=== PATIENT | female | born 1985 | race American Indian/Alaskan Native ===

== ENCOUNTER 2016-11-27 15:43 | Inpatient (IN) | payer MEDICAID ==
[2016-11-27] MEDS ORDERED: LACTATED RINGERS 1,000 ML ONE (15:52)
--- NOTE | 2016-11-27 16:30 | Anesthesia Consultation ---
Anesthesia Consult and Med Hx Date of service: 11/27/16 - Airway Anesthetic Teeth Evaluation: Poor (multiple careos teeth upper front) ROM Head & Neck: Adequate Mental/Hyoid Distance: Adequate Mallampati Class: Class III Intubation Access Assessment: Possibly Difficult - Pre-Operative Health Status ASA Pre-Surgery Classification: ASA3 - Cardiovascular System Hx Hypertension: Yes (PIH) - Other Systems Hx Obesity: Yes (super obesity BMI 77.7)
[2016-11-27] MEDS ORDERED: ZOFRAN IV PRN ×2 (16:32→18:22)
[2016-11-27] MEDS ORDERED: DILAUDID IV PRN (16:32)
[2016-11-27] MEDS ORDERED: NUBAIN IV PRN (16:32)
[2016-11-27] MEDS ORDERED: TORADOL IV PRN (16:32)
[2016-11-27] MEDS ORDERED: NARCAN 0.4 MG/1 ML IV PRN ×3 (16:32→20:38)
--- NOTE | 2016-11-27 16:32 | Anesthesia Day of Surgery ---
Anesthesia Day of Surgery - Day of Surgery Patient Examined: Yes Patient H&P Reviewed: Yes Patient is NPO: Yes
[2016-11-27] MEDS ORDERED: REGLAN IV ONE (16:35)
[2016-11-27] MEDS ORDERED: BICITRA PO ONE (16:35)
[2016-11-27] MEDS ORDERED: PEPCID IV ONE (16:35)
[2016-11-27] MEDS ORDERED: LACTATED RINGERS 1,000 ML IV SCH (17:00)
[2016-11-27] MEDS ORDERED: PITOCin/NS 20 UNIT/1000ML DRIP 20 UNITS/1,000 ML BAG IV SCH (17:00)
[2016-11-27] MEDS ORDERED: SODIUM CHLORIDE FLUSH SYRINGE 10 ML IV NR ×3 (17:00→21:00)
[2016-11-27] MEDS ORDERED: ANCEF/STERILE WATER 2 GM/20 ML 2 GM/20 ML SYRINGE IV NR (17:00)
[2016-11-27 17:09] LABS: Basophils % (Auto) 1.8 % (0.0-1.8); Eosinophils % (Auto) 0.8 % (0.0-4.3); Hematocrit 41.6 % (30.3-42.9); Hemoglobin 13.7 gm/dl (10.1-14.3); Mean Corpuscular HGB Conc 33 % (30-34); Mean Corpuscular Hemoglobin 29 pg (28-32); Mean Corpuscular Volume 90 fl (79-97); Platelet Count 231 K/mm3 (140-440); Red Blood Count 4.64 M/mm3 (3.65-5.03); Red Cell Distribution Width 14.8 % (13.2-15.2); White Blood Count 8.7 K/mm3 (4.5-11.0)
[2016-11-27 17:32] LABS: Alanine Aminotransferase 24 units/L (7-56); Albumin 3.2 g/dL (3.9-5); Albumin/Globulin Ratio 1.1 %; Alkaline Phosphatase 245 units/L (35-129); Anion Gap 19 mmol/L; Bilirubin,Total 0.2 mg/dL (0.1-1.2); Blood Urea Nitrogen 7 mg/dL (7-17); Calcium 9.1 mg/dL (8.4-10.2); Carbon Dioxide 23 mmol/L (22-30); Chloride 102.1 mmol/L (98-107); Glucose 80 mg/dL (65-100); Potassium 4.6 mmol/L (3.6-5.0); Sodium 139 mmol/L (137-145); Total Protein 6.1 g/dL (6.3-8.2)
--- NOTE | 2016-11-27 17:43 | History and Physical Report ---
History of Present Illness Date of examination: 11/27/16 Date of admission: 11/27/16 15:43 Chief complaint: Elevated BP's and IUGR History of present illness: Pt is a 31yo BF EDC 12/27/16; EGA 35 5/7 weeks sent from [facility] for delivery due to Chronic Hypertension with superimposed Preeclampsia, Morbid Obesity and IUGR. She received care at [facility] since 17 weeks and course is significant for Previous C Section x 2. records are available and GBS unknown. She desires Permanent sterilization. Past History Past Medical History: hypertension, other (Morbid Obesity) Past Surgical History: cholecystectomy, section (x2) [employer] History: abnormal PAP smear, chlamydia Social history: no significant social history, single - Obstetrical History Expected Date of Delivery: 12/27/16 Actual Gestation: 35 Week(s) 5 Day(s) : 5 Medications and Allergies Allergies Allergy/AdvReac Type Severity Reaction Status Date / Time No Known Allergies Allergy Unverified 03/01/16 11:04 Home Medications Medication Instructions Recorded Confirmed Last Taken Type No Known Home Medications [No 11/27/16 11/27/16 Unknown History Reported Home Medications] Active Meds: Active Medications Diphenhydramine HCl (Benadryl) 12.5 mg IV Q2H PRN PRN Reason: Itching Hydromorphone HCl (Dilaudid) 0.5 mg IV Q4H PRN PRN Reason: breakthrough pain > 7/10 Cefazolin Sodium (Ancef/Sterile Water 2 Gm/20 Ml) 2 gm in 20 mls @ 80 mls/hr IV PREOP NR PRN Reason: Protocol Stop: 11/28/16 16:59 Lactated Ringer's (Lactated Ringers) 1,000 mls @ 2,250 mls/hr IV PREOP SUJEY Stop: 11/28/16 17:27 Oxytocin/Sodium Chloride (Pitocin/Ns 20 Unit/1000ml Drip) 20 units in 1,000 mls @ 0 mls/hr IV TITR SUJEY PRN Reason: As Directed Ketorolac Tromethamine (Toradol) 30 mg IV Q6H PRN PRN Reason: Pain, Moderate (4-6) Stop: 12/02/16 16:31 Nalbuphine HCl (Nubain) 2.5 mg IV Q2H PRN PRN Reason: Itching Stop: 11/27/16 22:33 Naloxone HCl (Narcan 0.4 Mg/1 Ml) 0.2 mg IV Q2MIN PRN PRN Reason: Res Rate </= 8 or 02 SAT < 92% Stop: 11/29/16 16:33 Ondansetron HCl (Zofran) 4 mg IV Q8H PRN PRN Reason: Nausea And Vomiting Sodium Chloride (Sodium Chloride Flush Syringe 10 Ml) 10 ml IV PRN NR Stop: 11/30/16 16:59 Review of Systems All systems: negative - Vital Signs Vital signs: Vital Signs Pulse BP 87 157/83 11/27/16 16:32 11/27/16 16:32 Temp Pulse Resp BP Pulse Ox 93 H 159/70 99 11/27/16 17:28 11/27/16 17:14 11/27/16 17:28 - Physical Exam Breasts: Positive: deferred Cardiovascular: Regular rate Lungs: Positive: Clear to auscultation Abdomen: Positive: normal appearance, soft Genitourinary (Female): Positive: normal external genitalia Uterus: Positive: enlarged Extremities: Positive: normal - Obstetrical FHR: category 1 Uterine Contraction Monitor Mode: External Uterine Contraction Pattern: Absent Results Result Diagrams: 11/27/16 16:15 11/27/16 16:15 Abnormal lab results 11/27/16 11/27/16 Range/Units 16:15 16:15 [place] % (Auto) 10.0 H (0.0-7.3) % [place] # 0.9 H (0.0-0.8) K/mm3 Baso # 0.2 H (0.0-0.1) K/mm3 Creatinine 0.5 L (0.7-1.2) mg/dL Alkaline Phosphatase 245 H (35-129) units/L Total Protein 6.1 L (6.3-8.2) g/dL Albumin 3.2 L (3.9-5) g/dL All other labs normal. Ultrasound: report reviewed ([facility] 03/11) Assessment and Plan - Patient Problems (1) 35 weeks gestation of Onset Date: 11/27/16 Current Visit: Yes Status: Acute Plan to address problem: A: IUP @ 35 5/7 weeks Chronic hypertension with Superimposed Preeclampsia Previous C Section x 2 Morbid Obesity IUGR Desires permanent sterilization P: Admit for a Repeat C Section with BTL Magnesium sulfate post delivery (2) Morbid obesity Onset Date: 11/27/16 Current Visit: Yes Status: Acute Qualifiers: Obesity type: due to excess calories Qualified Code(s): E66.01 - Morbid ( severe) obesity due to excess calories (3) Previous section complicating Onset Date: 11/27/16 Current Visit: Yes Status: Acute (4) Pre-eclampsia added to pre-existing hypertension Onset Date: 11/27/16 Current Visit: Yes Status: Acute
[2016-11-27] MEDS ORDERED: MORPHINE ONE (18:00)
[2016-11-27] MEDS ORDERED: PHENERGAN PO PRN (18:22)
[2016-11-27] MEDS ORDERED: PHENERGAN PR PRN (18:22)
[2016-11-27] MEDS ORDERED: ANCEF/STERILE WATER 2 GM/20 ML IV ONE (18:46)
[2016-11-27] MEDS ORDERED: WATER FOR IRRIG STERILE IR ONE (18:55)
[2016-11-27] MEDS ORDERED: NACL 0.9% IR ONE (18:55)
[2016-11-27] MEDS ORDERED: KETALAR ONE (18:57)
[2016-11-27] MEDS ORDERED: fentaNYL-BUPIV 2 MCG/ML-0.125% 200 MCG/100 ML BAG EPIDURAL SCH (19:00)
[2016-11-27] MEDS ORDERED: DIPRIVAN 10 MG/ML IV ONE (19:05)
[2016-11-27] MEDS ORDERED: VERSED ONE ×2 (19:08→19:30)
[2016-11-27] MEDS ORDERED: BENADRYL ONE (19:20)
[2016-11-27] MEDS: PITOCin/NS 20 UNIT/1000ML DRIP 20 UNITS/1,000 ML BAG IV SCH ×2 (19:20→21:26)
--- NOTE | 2016-11-27 20:26 | Operative Report ---
Operative Report Operative Report: Date of procedure: 11/27/2016 Pre-operative diagnosis: 1. Intrauterine at 35-5/7 weeks 2. Chronic hypertension with superimposed preeclampsia 3. Previous section 2 4. Morbid obesity 5. Intrauterine growth restriction 6. Desires permanent sterilization Post-operative diagnosis: Same Procedure name(s): Repeat classical section with bilateral tubal ligation Surgeon: Jeffery Mackey MD Senior Instructor: None Anesthesia: Spinal anesthesia by Dr. Dorina Wolf EBL: 900 MLS Findings: A 2137 g male infant Apgars 5 at 1 minute 8 at 5 minutes. Nuchal cord 2. Clear amniotic fluid. Normal uterus with lower uterine adhesions. Normal tubes and ovaries bilaterally. Procedure: After the patient was prepped and draped in usual sterile fashion, and after satisfactory level of epidural anesthesia was obtained, the skin knife was used to make a transverse skin incision through the previous skin scars. The incision was excised down to layer of the fascia, which was nicked in the midline and extended laterally using the Bovie cautery. The rectus muscles were dissected off the rectus fascia both superiorly and inferiorly. The rectus bellies in the midline, and the peritoneum was entered under direct visualization. The peritoneal incision was extended superiorly and inferiorly, and there was numerous amounts of lower uterine adhesions suture taken down using both sharp and blunt dissection. A bladder flap was created and the bladder blade was then placed. The uterus was scored in a vertical fashion, entered in the midline revealing clear amniotic fluid. The 's head was delivered onto the surgical field with the aid of a vacuum, nuchal cord 2 reduced and the oropharynx and nasopharynx were bulb suctioned. The rest of the infant's body was delivered, cord was doubly clamped and cut and the was handed to the waiting respiratory team. Cord blood was then obtained. The placenta was manually removed from the uterus, and the uterus removed from its normal anatomical position. After gentle uterine lavage, the incision was inspected and found to be without extensions. It was then closed in 2 layers using 0 Vicryl suture in a running interlocking fashion, the second layer imbricating the first. At this point, attention was turned to the tubal ligation. First the right fallopian tube was grasped using the Miles, and after identifying the fimbriated end the right tube a Filshie clip was applied. The same procedure was performed on the left fallopian tube. The tube was grasped using a Kirkwood, after first identifying the fimbriated end of the left fallopian tube, the Filshie clip was applied. After good hemostasis was achieved, copious amounts or irrigation was performed , and the gutters were suctioned free of blood and blood clots. The Tisseel sealant was sprayed across the uterine incision. The uterus was then returned to its normal anatomical position, and after good hemostasis assured, the peritoneum and fascia was reapproximated using #1 PDS suture in a running fashion. The subcutaneous layer was made hemostatic using Bovie cautery, the Tisseel sealant was sprayed across the fascial incision, and the subcutaneous layer was reapproximated using 3-0 Vicryl suture in a running interlocking fashion. The skin edges were reapproximated using moises. Patient tolerated the procedure well was transported to recovery in stable condition.
[2016-11-27] MEDS ORDERED: PERCOCET 5/325 PO PRN (20:38)
[2016-11-27] MEDS ORDERED: MYLICON PO PRN (20:38)
[2016-11-27] MEDS ORDERED: TYLENOL PO PRN (20:38)
[2016-11-27] MEDS ORDERED: LANSINOH TP PRN (20:38)
[2016-11-27] MEDS ORDERED: SENOKOT PO PRN (20:38)
[2016-11-27] MEDS ORDERED: MILK OF MAGNESIA PO PRN (20:38)
[2016-11-27] MEDS ORDERED: MAGNESIUM SULFATE 4GM/100ML 4 GM/100 ML BAG IV ONE (20:38)
[2016-11-27] MEDS ORDERED: TUCKS PAD TP PRN (20:38)
[2016-11-27] MEDS ORDERED: D5LR 1,000 ML IV SCH (21:00)
[2016-11-27] MEDS: MAGNESIUM SULFATE 40GM/1000ML 40 GM/1,000 ML BAG IV SCH (21:27)
[2016-11-27] MEDS ORDERED: APRESOLINE IV PRN (21:38)
[2016-11-28] MEDS: ANCEF/NS 1 GM/50 ML 1 GM/50 ML BAG IV SCH ×2 (01:50→10:56)
--- NOTE | 2016-11-28 03:53 | Progress Note ---
Assessment and Plan A: POD #1 CHTN superimposed Preeclampsia morbid obesity P: Follow Routine PostOp Orders Continue Rocael Choe MD management for CHTN Subjective - Subjective Date of service: 11/28/16 Patient reports: appetite normal, voiding normally (ellsworth in place (adquate urine output)), pain well controlled, flatus, other (Denies all s/s of PIH) : doing well, bottle feeding Objective - Vital Signs Latest vital signs: Vital Signs Temp Pulse Pulse Resp BP BP Pulse Ox 11/27/16 23:15 99.0 F 103 H 18 170/81 11/27/16 22:20 98.6 F 11/27/16 22:06 100 H 16 151/89 99 11/27/16 22:05 103 H 17 140/82 99 11/27/16 22:00 98 H 47 H 140/82 98 11/27/16 21:50 102 H 24 164/93 96 11/27/16 21:48 97 H 180/96 11/27/16 21:40 93 H 38 H 97 11/27/16 21:30 93 H 22 162/93 97 11/27/16 21:20 98 H 35 H 162/93 92 11/27/16 21:10 95 H 21 162/93 98 11/27/16 21:00 95 H 21 162/93 98 11/27/16 20:50 92 H 18 97 11/27/16 20:46 99 H 18 161/99 97 11/27/16 20:40 94 H 12 158/92 97 11/27/16 20:35 92 H 15 169/98 98 11/27/16 20:30 98.3 F 94 H 17 160/85 98 11/27/16 20:29 95 H 19 151/87 100 11/27/16 17:59 97 F L 11/27/16 17:28 93 H 99 11/27/16 17:25 90 98 11/27/16 17:20 88 98 11/27/16 17:15 87 99 11/27/16 17:14 88 159/70 11/27/16 17:10 89 98 11/27/16 17:04 88 97 11/27/16 16:59 90 156/74 97 11/27/16 16:55 88 164/78 11/27/16 16:54 102 H 185/99 96 11/27/16 16:52 100 H 93 11/27/16 16:51 84 175/99 11/27/16 16:50 85 98 11/27/16 16:46 87 98 11/27/16 16:45 82 11/27/16 16:44 147 H 93 11/27/16 16:32 87 157/83 Intake and Output 11/27/16 11/27/16 11/28/16 14:59 22:59 06:59 Intake Total 3307 Output Total 250 Balance 3057 Intake: IV 3307 PITOCin/NS 20 UNIT/1000ML 1000 DRIP 20 units In 1,000 ml @ 250 mls/hr IV DIRECT SUJEY Rx#:[id number] Output: Urine 250 Uretheral (Ellsworth) 100 Other: Weight 231.332 kg Estimated Blood Loss 900 Patient Weight 11/28/16 06:59 Weight 231.332 kg - Exam Breasts: Present: normal Cardiovascular: Present: Regular rate Lungs: Present: Clear to auscultation, Normal air movement Abdomen: Present: normal appearance, soft, normal bowel sounds Uterus: Present: normal, fundal height below umbilicus Extremities: Present: edema Incision: Present: dry, dressed - Labs Labs: Abnormal lab results 11/27/16 11/27/16 11/28/16 Range/Units 16:15 16:15 01:43 Lewis % (Auto) 10.0 H (0.0-7.3) % Lewis # 0.9 H (0.0-0.8) K/mm3 Baso # 0.2 H (0.0-0.1) K/mm3 Creatinine 0.5 L (0.7-1.2) mg/dL Magnesium 3.3 H (1.7-2.3) mg/dL Alkaline Phosphatase 245 H (35-129) units/L Total Protein 6.1 L (6.3-8.2) g/dL Albumin 3.2 L (3.9-5) g/dL
[2016-11-28] MEDS ORDERED: M-M-R II VACCINE SUB-Q ONE (06:00)
[2016-11-28] MEDS ORDERED: BOOSTRIX IM ONE (06:00)
[2016-11-28] MEDS: BENADRYL IV PRN ×2 (09:15→17:43)
[2016-11-28 09:51] LABS: Hematocrit 37.3 % (30.3-42.9); Hemoglobin 12.2 gm/dl (10.1-14.3)
--- NOTE | 2016-11-28 10:39 | Progress Note ---
Subjective Date of service: 11/28/16 Interval history: 1st POD after Patient is in the bed, comfortable. Pain is controlled with pain meds. Has not ambulated yet due to Mg2SO4 infusion. No residual neurological deficit. No anesthesia complications Objective - Constitutional Vitals: Vital Signs - 12hr 11/27/16 11/28/16 11/28/16 23:15 04:30 06:35 Temperature 99.0 F 97.8 F Pulse Rate [ 103 H 101 H 103 H Right From Monitor] Respiratory 18 18 18 Rate Blood Pressure 170/81 148/89 175/96 [Right Arm] 11/28/16 08:25 Temperature 98.5 F Pulse Rate [ 106 H Right From Monitor] Respiratory 20 Rate Blood Pressure 153/79 [Right Arm] - Labs CBC & Chem 7: 11/28/16 09:19 11/27/16 16:15 Labs: Abnormal lab results 11/27/16 11/27/16 11/28/16 Range/Units 16:15 16:15 01:43 Coos % (Auto) 10.0 H (0.0-7.3) % Coos # 0.9 H (0.0-0.8) K/mm3 Baso # 0.2 H (0.0-0.1) K/mm3 Creatinine 0.5 L (0.7-1.2) mg/dL Magnesium 3.3 H (1.7-2.3) mg/dL Alkaline Phosphatase 245 H (35-129) units/L Total Protein 6.1 L (6.3-8.2) g/dL Albumin 3.2 L (3.9-5) g/dL
[2016-11-28] MEDS: FEOSOL PO SCH (10:55)
[2016-11-28] MEDS: PRENATAL VITAMIN PO SCH (10:55)
[2016-11-28] MEDS: LOVENOX SUB-Q SCH (10:57)
[2016-11-28] MEDS: NORMODYNE PO SCH ×2 (11:37→23:10)
[2016-11-28] MEDS: MAGNESIUM SULFATE 40GM/1000ML 40 GM/1,000 ML BAG IV SCH (16:37)
[2016-11-28] MEDS: MOTRIN PO PRN (21:17)
[2016-11-28] MEDS: NORCO 5/325 PO PRN (21:17)
[2016-11-29] MEDS: NORCO 5/325 PO PRN ×2 (04:45→15:25)
[2016-11-29] MEDS: MOTRIN PO PRN ×2 (04:46→15:26)
[2016-11-29] MEDS ORDERED: BOOSTRIX IM ONE (06:00)
--- NOTE | 2016-11-29 09:59 | Progress Note ---
Assessment and Plan A: POD #2 - stable P: Discharge home today Subjective - Subjective Date of service: 11/29/16 Principal diagnosis: repeat , delivery Patient reports: appetite normal : doing well Objective - Vital Signs Latest vital signs: Vital Signs Temp Pulse Pulse Resp BP BP 11/29/16 04:50 98.2 F 105 H 20 156/89 11/28/16 23:10 115 H 178/90 11/28/16 20:15 98.6 F 115 H 20 152/78 11/28/16 18:40 112 H 20 148/72 11/28/16 16:40 98.5 F 115 H 20 144/66 11/28/16 14:53 112 H 20 160/75 11/28/16 12:51 99 F 114 H 20 153/88 11/28/16 10:54 109 H 20 150/84 Intake and Output 11/28/16 11/29/16 11/29/16 22:59 06:59 14:59 Intake Total 1740 Output Total 900 600 Balance 840 -600 Intake: IV 1500 D5lr 1,000 ml @ 125 mls/ 900 hr IV DIRECT SUJEY Rx#: [id number] MAGNESIUM SULFATE 40GM/ 400 1000ML 40 gm In 1,000 ml @ 2 GM/HR 50 mls/hr IV DIRECT SUJEY Rx#:[id number] MAGNESIUM SULFATE 4GM/ 200 100ML 4 gm In 100 ml @ 300 mls/hr IV ONCE ONE Rx #:[id number] Oral 240 Output: Urine 900 600 Indwelling Catheter 900 600 Other: Total, Intake Amount 240 Total, Output Amount 900 600 # Voids Indwelling Catheter 1 - Exam Breasts: Present: deferred Cardiovascular: Present: Regular rate Lungs: Present: Clear to auscultation Abdomen: Present: soft Uterus: Present: fundal height below umbilicus Extremities: Present: normal Deep Tendon Reflex Grade: Normal +2
--- NOTE | 2016-11-29 10:05 | Discharge Summary ---
Providers - Providers Date of Admission: 11/27/16 15:43 Date of discharge: 11/29/16 Attending physician: CLEM DELCID MD Primary care physician: CLEM DELCID MD Hospitalization Reason for admission: induction of labor Delivery: Procedure: section, bilateral tubal ligation Discharge diagnosis: delivery baby: male Condition at discharge: Good Disposition: DISCHARGED TO HOME OR SELFCARE Plan - Discharge Medications Prescriptions: Ferrous Sulfate [Feosol 325 MG tab] 325 mg PO BID #60 tablet HYDROcodone/APAP 5-325 [Buhl 5/325] 1 each PO Q6HR PRN #30 tablet PRN Reason: Pain Ibuprofen [Motrin] 800 mg PO Q8HR PRN #30 tablet PRN Reason: Moder Pain Unrelieved By Buhl Vit W-Ca,Fe,FA(<1 mg) [ Vitamins] 1 each PO DAILY #30 tablet - Provider Discharge Summary Activity: routine, no sex for 6 weeks Diet: routine Instructions: routine Additional instructions: [] Smoking cessation referral if applicable(refer to patient education folder for contact #) [] Refer to [facility] Booklet Call your doctor immediately for: * Fever > 100.5 * Heavy vaginal bleeding ( >1 pad per hour) * Severe persistent headache * Shortness of breath * Reddened, hot, painful area to leg or breast * Drainage or odor from incision. * Keep incision clean and dry at all times and follow doctor's instructions regarding bathing/showering - Follow up plan Follow up: [facility] [Provider Group] - 14 Days
[2016-11-29] MEDS: NORMODYNE PO SCH (10:11)
[2016-11-29] MEDS: PRENATAL VITAMIN PO SCH (10:11)
[2016-11-29] MEDS: FEOSOL PO SCH (10:11)
[2016-11-29] MEDS: LOVENOX SUB-Q SCH (10:12)
[2016-11-29 18:44] VITALS: BP 132/76
[2016-11-30] MEDS ORDERED: FLUARIX QUAD 2016-2017(36 MOS+) IM ONE (12:00)
== END 2016-11-29 18:06 | disposition home or self-care (01) | DRG 765 ==
LOC: APU 15:43 → OB 22:49
PROVIDERS: ADMIT Obstetrics & Gynecology; ATTEND Obstetrics & Gynecology
PROC: 10D00Z1 Extraction of Products of Conception, Low, Open Approach (ICD-10-PCS; principal; 2016-11-27)
PROC: 0UL70CZ Occlusion of Bilateral Fallopian Tubes with Extraluminal Device, Open Approach (ICD-10-PCS; 2016-11-27)
DX: O34.211 Maternal care for low transverse scar from previous cesarean delivery (principal); O60.14X0 Preterm labor third trimester with preterm delivery third trimester, not applicable or unspecified; O11.4 Pre-existing hypertension with pre-eclampsia, complicating childbirth; O99.214 Obesity complicating childbirth; E66.01 Morbid (severe) obesity due to excess calories; O69.81X0 Labor and delivery complicated by cord around neck, without compression, not applicable or unspecified; O36.5930 Maternal care for other known or suspected poor fetal growth, third trimester, not applicable or unspecified; Z68.45 Body mass index [BMI] 70 or greater, adult; Z37.0 Single live birth; Z90.49 Acquired absence of other specified parts of digestive tract; Z3A.35 35 weeks gestation of pregnancy; Z30.2 Encounter for sterilization
CPT/HCPCS: 36415; 80053; 83735; 85014; 85018; 85025; 86850; 86900; 86901; 88307; 99211; C9250; G0463; J0360; J0690; J1200; J1650; J2250; J2270; J2300; J2590; J2704; J2765; J3475; J7120; J7121; Q0169

== ENCOUNTER 2017-03-07 17:19 | Emergency (ER) | payer SELFPAY ==
[2017-03-07 22:18] VITALS: BP 145/88
--- NOTE | 2017-03-08 04:19 | Emergency Department Report ---
Entered by YODIT GRANDE, acting as scribe for ERNESTO RITCHIE PA. ED Female HPI - General Chief complaint: Pain General Stated complaint: BURNING SENSATION IN CHEST AREA Time Seen by Provider: 03/07/17 20:09 Source: patient Mode of arrival: Ambulatory Limitations: No Limitations - History of Present Illness Initial comments: 31 y/o female with a PMHx of HTN and obesity presents to the ED c/o intermittent bilateral breast burning sensation that began 1 year ago. Aggravated with nothing and alleviated with palpation. Denies chest pain, SOB, headache, dizziness, nausea, vomiting, fever, and chills. Notes she was seen in this ED 1 year ago during the onset of her breast burning sensation, which she had experienced associated palpitations. She reports she was given Motrin which relieved her symptoms temporarily. She denies palpitation currently. Patient notes she had an echocardiogram done in September 2016 at [facility], and the test was normal. Notes she doesn't breast feed her infant. NKDA. LOCKE Complaint: other (bilateral breast burning sensation) Onset/Timin -: year(s) Location: other (bilateral breasts) Radiation: non-radiating Severity: mild Quality: burning Consistency: constant Improves with: other (palpation) Worsens with: none Are you Now?: No Associated Symptoms: denies other symptoms. denies: vaginal discharge, vaginal bleeding, abdominal pain, nausea/vomiting, fever/chills, headaches, loss of appetite, dysuria, hematuria, rash, seizure, shortness of breath, syncope, weakness - Related Data Previous Rx's Medication Instructions Recorded Last Taken Type Ferrous Sulfate [Feosol 325 MG tab] 325 mg PO BID #60 tablet 11/27/16 Unknown Rx HYDROcodone/APAP 5-325 [Owen 1 each PO Q6HR PRN #30 tablet 11/27/16 Unknown Rx 5/325] Vit W-Ca,Fe,FA(<1 mg) 1 each PO DAILY #30 tablet 11/27/16 Unknown Rx [ Vitamins] Cyclobenzaprine HCl [Flexeril 5 MG 5 mg PO QHS #20 tab 03/07/17 Unknown Rx TAB] Ibuprofen [Motrin 800 MG tab] 800 mg PO Q8HR PRN #30 tablet 03/07/17 Unknown Rx Allergies Allergy/AdvReac Type Severity Reaction Status Date / Time No Known Allergies Allergy Unverified 03/01/16 11:04 ED Review of Systems Comment: All other systems reviewed and negative Constitutional: denies: chills, diaphoresis, fever, weakness Eyes: denies: eye pain, eye discharge, vision change ENT: denies: ear pain, throat pain Respiratory: denies: cough, orthopnea, shortness of breath, SOB with exertion, SOB at rest, stridor, wheezing Cardiovascular: denies: chest pain, palpitations, dyspnea on exertion, orthopnea , edema, syncope, paroxysmal nocturnal dyspnea Endocrine: no symptoms reported Gastrointestinal: denies: abdominal pain, nausea, vomiting, diarrhea Genitourinary: denies: urgency, dysuria, frequency, hematuria, discharge, abnormal menses, dyspareunia Musculoskeletal: denies: back pain, joint swelling, arthralgia Skin: other (burning sensation in bilateral breasts). denies: rash, lesions Neurological: denies: headache, weakness, numbness, paresthesias Psychiatric: denies: anxiety, depression Hematological/Lymphatic: denies: easy bleeding, easy bruising ED Past Medical Hx - Past Medical History Previous Medical History?: Yes Hx Hypertension: Yes Hx Congestive Heart Failure: No Hx Diabetes: No Hx Deep Vein Thrombosis: No Hx Renal Disease: No Hx Sickle Cell Disease: No Hx Seizures: No Hx Asthma: No Hx COPD: No Hx HIV: No Additional medical history: Obesity - Surgical History Past Surgical History?: Yes Hx Cholecystectomy: Yes Additional Surgical History: x 2 - Social History Smoking Status: Never Smoker Substance Use Type: None - Medications Home Medications: Home Medications Medication Instructions Recorded Confirmed Last Taken Type Ferrous Sulfate [Feosol 325 MG tab] 325 mg PO BID #60 tablet 11/27/16 Unknown Rx HYDROcodone/APAP 5-325 [Owen 1 each PO Q6HR PRN #30 tablet 11/27/16 Unknown Rx 5/325] Vit W-Ca,Fe,FA(<1 mg) 1 each PO DAILY #30 tablet 11/27/16 Unknown Rx [ Vitamins] Cyclobenzaprine HCl [Flexeril 5 MG 5 mg PO QHS #20 tab 03/07/17 Unknown Rx TAB] Ibuprofen [Motrin 800 MG tab] 800 mg PO Q8HR PRN #30 tablet 03/07/17 Unknown Rx ED Physical Exam - General Limitations: No Limitations General appearance: alert, in no apparent distress - Head Head exam: Present: atraumatic, normocephalic - Eye Eye exam: Present: normal appearance, PERRL, EOMI Pupils: Present: normal accommodation - ENT ENT exam: Present: normal exam, mucous membranes moist, normal external ear exam - Neck Neck exam: Present: normal inspection, full ROM. Absent: tenderness, meningismus, lymphadenopathy, thyromegaly - Respiratory Respiratory exam: Present: normal lung sounds bilaterally. Absent: respiratory distress, wheezes, rales, rhonchi, stridor, chest wall tenderness, accessory muscle use, decreased breath sounds - Cardiovascular Cardiovascular Exam: Present: regular rate, normal rhythm, normal heart sounds. Absent: systolic murmur, diastolic murmur, rubs, gallop - GI/Abdominal GI/Abdominal exam: Present: soft, normal bowel sounds. Absent: distended, tenderness, guarding, rebound, rigid - Extremities Exam Extremities exam: Present: normal inspection, full ROM - Back Exam Back exam: Present: normal inspection, full ROM. Absent: tenderness, CVA tenderness (R), CVA tenderness (L), muscle spasm, paraspinal tenderness, vertebral tenderness - Neurological Exam Neurological exam: Present: alert, oriented X3, normal gait - Psychiatric Psychiatric exam: Present: normal affect, normal mood - Skin Skin exam: Present: warm, dry, intact. Absent: rash - Other Other exam information: Chest: Bilateral heavy set breast that are non-tender to palpation. No mass or deformity noted. ED Course Vital Signs 03/07/17 18:20 Temperature 98.7 F Pulse Rate 88 Respiratory 20 Rate Blood Pressure 150/99 [Right] O2 Sat by Pulse 100 Oximetry ED Medical Decision Making - Medical Decision Making 31-year-old female presents with bilateral breast burning sensation Vital signs stable patient is in no acute or respiratory distress. Discussed findings with patient about diagnoses. Discussed treatment in ED with patient Discussed with patient to apply heat to affected area Discussed with patient to follow up with breast specialist and surgeons as referred, and to return to the ED if symptoms return or worsen. Patient states understanding and will follow instructions. Pt verbally states understanding and will comply to follow up. ED Disposition Clinical Impression: Engorgement of breast, Myalgia Disposition: TO HOME OR SELFCARE Is pt being admited?: No Does the pt Need Aspirin: No Condition: Stable Instructions: Breast Fullness Versus Breast Engorgement (ED), Musculoskeletal Pain (ED), Trigger Point Pain (ED), Heat Pack Application (ED) Additional Instructions: Follow-up with frozen as given. If symptoms worsen return to ED. Prescriptions: Cyclobenzaprine HCl [Flexeril 5 MG TAB] 5 mg PO QHS #20 tab Ibuprofen [Motrin 800 MG tab] 800 mg PO Q8HR PRN #30 tablet PRN Reason: Moder Pain Unrelieved By Owen Referrals: PRIMARY CAREMD [Primary Care Provider] - 3-5 Days RAYMOND MEHTA MD [Referring] - 3-5 Days ADRIA MI MD [Staff Physician] - 3-5 Days NASIR DIAZ MD [Staff Physician] - 3-5 Days NANCY GREGG MD [Staff Physician] - 3-5 Days MARTIN CARY MD [Staff Physician] - 3-5 Days BLAYNE ALVARADO MD [Staff Physician] - 3-5 Days Forms: Work/School Release Form(ED) Time of Disposition: 21:17 This documentation as recorded by the CHRISTIANE hobbs JASMINE,accurately reflects the service I personally performed and the decisions made by ERMA garsia OYINLOLA A, PA.
== END 2017-03-07 21:25 | disposition home or self-care (01) ==
LOC: ED 17:19
DX: N64.59 Other signs and symptoms in breast (principal); M79.1 Myalgia; I10 Essential (primary) hypertension
CPT/HCPCS: 99282